=== PATIENT | male | born 1970 | race Hispanic/Latino ===

== ENCOUNTER 2025-03-24 21:50 | Emergency (ER) | payer BC, OTHER ==
[~2025-03-24] VITALS: Ht 172.7 cm; Wt 88.5 kg
[2025-03-24 22:31] LABS: BASOPHILS # (AUTO) 0.04 K/uL (0.00-0.20); BASOPHILS % (AUTO) 0.3 % (0.0-5.0); EOSINOPHILS # (AUTO) 0.19 K/uL (0.00-0.70); EOSINOPHILS % (AUTO) 1.6 % (0.0-8.0); HEMATOCRIT 38.9 % (42-54); IMMATURE GRANULOCYTE ABSOLUTE 0.04 K/uL (0-1); LYMPHOCYTES # (AUTO) 1.7 K/uL (1.0-4.8); LYMPHOCYTES % (AUTO) 14.3 % (21.0-51.0); MEAN CORPUSCULAR HEMOGLOBIN 28.9 pg (27.0-33.0); MEAN CORPUSCULAR HGB CONC 34.2 g/dL (32.0-36.0); MEAN CORPUSCULAR VOLUME 84.6 fL (79-99); MONOCYTES # (AUTO) 0.9 K/uL (0.1-1.0); NEUTROPHILS # (AUTO) 8.8 K/uL (1.8-7.7); NEUTROPHILS % (AUTO) 75.5 % (40.0-77.0); PLATELET COUNT (AUTO) 225 K/uL (130-400); RED CELL DISTRIBUTION WIDTH 12.3 % (11.0-15.5); WHITE BLOOD COUNT (AUTO) 11.6 K/uL (4.8-10.8)
[2025-03-24 22:38] LABS: POTASSIUM 3.6 mmol/L (3.5-5.1)
[2025-03-24 22:40] LABS: APPEARANCE,URINE CLEAR (CLEAR); BILIRUBIN,URINE NEGATIVE (NEGATIVE); COLOR,URINE LIGHT-YELLOW (YELLOW); GLUCOSE, URINE (UA) NEGATIVE (NEGATIVE); KETONES,URINE NEGATIVE (NEGATIVE); LEUKOCYTE ESTERASE ,URINE NEGATIVE Leu/uL (NEGATIVE); MUCUS,URINE RARE LPF (None Seen); NITRATE,URINE NEGATIVE (NEGATIVE); OCCULT BLOOD,URINE SMALL (NEGATIVE); PROTEIN,URINE NEGATIVE (NEGATIVE); SQUAMOUS EPITHELIAL CELL,UR RARE /HPF (0-2); UROBILINOGEN,URINE 0.2 mg/dL (0.2-1.0)
--- NOTE | 2025-03-24 22:46 | HMCIMG ---
CT ABDOMEN/PELVIS W/O CONTRAST HISTORY: Right flank pain COMPARISON: None TECHNIQUE: Multiple sequential axial images of the abdomen and pelvis were obtained from the dome of the diaphragm through symphysis pubis. Patient was not given contrast through intravenous route. Oral contrast was not given. FINDINGS: No pleural effusion is seen bilaterally. There is no evidence of parenchymal disease or pulmonary nodule of the visualized lower lungs. Degenerative changes of the thoracolumbar spine are present. The heart is not enlarged. The liver, spleen, adrenal glands and pancreas are unremarkable. No hydronephrosis is on the left. There is mild right proptosis with 6.5 mm renal stone in the right proximal ureter. 2 mm left renal pelvic stone is also seen Fecal material is seen in the colon. There are normal size retroperitoneal and mesenteric lymph nodes. No ascites is seen. Atherosclerotic changes are present. Pelvic sidewalls are symmetric bilaterally. Bladder is poorly distended. IMPRESSION: 1. There is mild right proptosis with 6.5 mm renal stone in the right proximal ureter. 2 mm left renal pelvic stone is also seen CT was performed with one or more following dose reduction techniques: automated exposure control, adjustment of the mA and kv according to patient's size, or use of a iterative reconstruction technique.
[2025-03-24] MEDS: morPHINE 4 MG SYG IVP ONE (23:14)
[2025-03-24] MEDS ORDERED: TAMS-55 PO (23:49)
[2025-03-24] MEDS ORDERED: TRAM50TA4 PO (23:49)
--- NOTE | 2025-03-24 23:53 | ERN ---
General Chief Complaint: Low Back Pain/Injury Stated Complaint: C/O LOWER BACK PAIN W/NAUSEA Time Seen by MD: 21:59 Time Seen by Midlevel: 21:59 Source: patient History of Present Illness Initial Comments 55-year-old male who presents to the emergency department due to right flank pain that initiated prior to arrival. Patient reports the sharp pain and nausea lasted approximately 25 minutes then resolved. States the flank pain radiates to the frontal right lower abdomen/inguinal area. Denies any chest pain, dysuria, hematuria, fever or further associated symptoms. Patient states he has a history of kidney stones otherwise denies further significant past medical history. Allergies: Coded Allergies: aspirin (Unverified Allergy, Unknown, 03/24/25) Home Meds Active Scripts Tramadol Hcl (Tramadol HCl) 50 Mg Tablet, 50 MG PO BID PRN for PAIN LEVEL 6 TO 10 for 7 Days, #14 TAB Prov:YVAN LEGER MD 03/25/25 Tamsulosin HCl (Flomax) 0.4 Mg Cap.er.24h, 1 CAP PO DAILY for 5 Days, #5 CAP 0 Refills Prov:SANDRA GERBER 03/24/25 Past Medical History Past Medical History: No Pertinent History Past Surgical History: None ROS Dictation Constitutional: Negative for fever,chills, and weight loss Eyes: Negative for injury, pain,redness, and discharge ENT: Negative for injury,pain or swelling Cardiovascular: Negative for chest pain, palpitations, and edema Respiratory: Negative for shortness of breath, cough, and wheezing, Abdomen/GI: Positive for nausea Negative for abdominal pain, vomiting, diarrhea, and constipation Back: Positive for right flank pain Negative for injury and pain : Negative for painful urination, bleeding or discharge MS/Extremity: Negative for injury and deformity Skin: Negative for rash, and discoloration Neuro: Negative for headache, weakness, numbness, tingling, and seizure Psych: Negative for suicide ideation, homicidal ideation, and hallucinations Physical Exam Physical Exam Dictation General: awake, alert, no acute distress Head/Face: Normocephalic, atraumatic Eyes: PERRL, EOMI, normal conjuctiva ENT: oral cavity clear, oral mucosa moist Neck: Supple, normal range of motion Cardiovascular: RRR, normal S1/S2 Respiratory: CTAB, no respiratory distress Abdomen: Soft, non-tender, non-distended, no guarding or rebound. Back: Minimal right CVA tenderness Skin: Warm, dry, normal turgor, no rash MS/Extremity: Pulses equal, no cyanosis, neurovascular intact, FROM Neuro: COAx4, GCS 15, strength 5/5, CN 2-12 intact, normal cerebellar exam, normal gait Psych: Normal behavior, mood, and affect normal Results Laboratory and Microbiology Lab and Micro Result Laboratory Tests Test 03/24/25 22:15 03/24/25 22:18 Urine Color LIGHT-YELLOW (YELLOW) Urine Appearance CLEAR (CLEAR) Urine pH 6.0 (5.0-8.0) Urine Specific Wilmer 1.022 (1.001-1.031) Urine Protein NEGATIVE mg/dL (NEGATIVE) Urine Glucose (UA) NEGATIVE mg/dL (NEGATIVE) Urine Ketones NEGATIVE mg/dL (NEGATIVE) Urine Occult Blood SMALL (NEGATIVE) H Urine Nitrate NEGATIVE (NEGATIVE) Urine Bilirubin NEGATIVE mg/dL (NEGATIVE) Urine Urobilinogen 0.2 mg/dL (0.2-1.0) Urine Leukocyte Esterase NEGATIVE Tonia/uL Urine RBC 11-25 /HPF (0-1) H Urine WBC 2-5 /HPF (0-1) H Urine Squamous Epithelial Cells RARE /HPF (0-2) Urine Bacteria None /HPF (None Seen) White Blood Count 11.6 K/uL (4.8-10.8) H Red Blood Count 4.60 MIL/uL (4.50-6.20) Hemoglobin 13.3 g/dL (14.0-18.0) L Hematocrit 38.9 % (42-54) L Mean Corpuscular Volume 84.6 fL (79-99) Mean Corpuscular Hemoglobin 28.9 pg (27.0-33.0) Mean Corpuscular Hemoglobin Concent 34.2 g/dL (32.0-36.0) Red Cell Distribution Width 12.3 % (11.0-15.5) Platelet Count 225 K/uL (130-400) Mean Platelet Volume 11.2 fL (7.5-10.5) H Immature Granulocyte % (Auto) 0.3 % (0-1) Neutrophils (%) (Auto) 75.5 % (40.0-77.0) Lymphocytes (%) (Auto) 14.3 % (21.0-51.0) L Monocytes (%) (Auto) 8.0 % (3.0-13.0) Eosinophils (%) (Auto) 1.6 % (0.0-8.0) Basophils (%) (Auto) 0.3 % (0.0-5.0) Neutrophils # (Auto) 8.8 K/uL (1.8-7.7) H Lymphocytes # (Auto) 1.7 K/uL (1.0-4.8) Monocytes # (Auto) 0.9 K/uL (0.1-1.0) Eosinophils # (Auto) 0.19 K/uL (0.00-0.70) Basophils # (Auto) 0.04 K/uL (0.00-0.20) Absolute Immature Granulocyte (auto 0.04 K/uL (0-1) Nucleated Red Blood Cells 0.0 % (0.0-0.19) Sodium Level 142 mmol/L (136-145) Potassium Level 3.6 mmol/L (3.5-5.1) Chloride Level 104 mmol/L (101-111) Carbon Dioxide Level 29 mmol/L (21-32) Blood Urea Nitrogen 17 mg/dL (7-18) Creatinine 1.0 mg/dL (0.5-1.3) Glomerular Filtration Rate Calc 88 mL/min (>90) Random Glucose 109 mg/dL (70-105) H Total Calcium 8.9 mg/dL (8.5-10.1) Labs Reviewed?: Yes EKG/XRAY/US/CT/MRI CT Scan Comment REASON: R flank pain ORDERING PHYSICIAN: SANDRA GERBER PROCEDURE: ABD PEL WO - CT ABDOMEN/PELVIS W/O CONTRAST CT ABDOMEN/PELVIS W/O CONTRAST HISTORY: Right flank pain COMPARISON: None TECHNIQUE: Multiple sequential axial images of the abdomen and pelvis were obtained from the dome of the diaphragm through symphysis pubis. Patient was not given contrast through intravenous route. Oral contrast was not given. FINDINGS: No pleural effusion is seen bilaterally. There is no evidence of parenchymal disease or pulmonary nodule of the visualized lower lungs. Degenerative changes of the thoracolumbar spine are present. The heart is not enlarged. The liver, spleen, adrenal glands and pancreas are unremarkable. No hydronephrosis is on the left. There is mild right proptosis with 6.5 mm renal stone in the right proximal ureter. 2 mm left renal pelvic stone is also seen Fecal material is seen in the colon. There are normal size retroperitoneal and mesenteric lymph nodes. No ascites is seen. Atherosclerotic changes are present. Pelvic sidewalls are symmetric bilaterally. Bladder is poorly distended. IMPRESSION: 1. There is mild right proptosis with 6.5 mm renal stone in the right proximal ureter. 2 mm left renal pelvic stone is also seen CT was performed with one or more following dose reduction techniques: automated exposure control, adjustment of the mA and kv according to patient's size, or use of a iterative reconstruction technique. DICTATED BY: CLINT JACKSON MD DATE: 03/24/252242 [facility] MDM: Differential diagnosis: Nephrolithiasis, UTI, hydronephrosis Rationale: 55-year-old male who presents to the emergency department due to right flank pain that initiated prior to arrival. Patient reports the sharp pain and nausea lasted approximately 25 minutes then resolved. States the flank pain radiates to the frontal right lower abdomen/inguinal area. Denies any chest pain, dysuria, hematuria, fever or further associated symptoms. Patient states he has a history of kidney stones otherwise denies further significant past medical history. Labs indicate mild WBC of 11.6, BMP nonspecific, UA shows RBCs and occult blood otherwise no urinary tract infection. CT abdomen and pelvis shows mild right proptosis with a 6.5 mm renal stone in the right proximal ureter and a 2 mm left renal pelvic stone. Patient verbalized being allergic to aspirin and anti- inflammatories therefore ketorolac unable to be administered. Patient received morphine and tamsulosin. Patient was educated on findings, and diagnosis. Admission versus outpatient follow up was discussed with the patient. Patient verbalized he would not like to stay and would prefer to follow up outpatient. Tamsulosin and pain medication were prescribed for outpatient treatment. Advised to follow up with PCP. Return to the emergency department if any worsening symptoms. Patient verbalized understanding. Patient stable for discharge. There are no social concerns with this patient. I independently interpreted the test that were performed, results were reviewed by me and considered findings on radiology if ordered. Medical management and examination interpretation discussions were had by me with other qualified healthcare professionals as indicated for the patient's care. ED Course Orders Procedure Category Date Status Time Cbc With Differential LAB 03/24/25 Complete 22:08 Basic Metabolic Panel LAB 03/24/25 Complete 22:08 Urinalysis LAB 03/24/25 Complete W/Microscopic 22:08 Ct Abdomen/Pelvis W/O CT 03/24/25 Resulted Contrast 22:08 Morphine 4mg Syg PHA 03/24/25 Complete (Morphine 4mg Syg) 23:00 Tamsulosin Hcl PHA 03/25/25 Complete (Flomax) 00:00 Current Medications Medications (Trade) Dose Ordered Sig/Felicia Route PRN Reason Start Time Stop Time Status Last Admin Dose Admin Morphine Sulfate (morPHINE 4MG SYG) 4 mg ONCE ONCE IVP 03/24/25 23:00 03/24/25 23:01 DC 03/24/25 23:14 Tamsulosin HCl (FloMAX) 0.4 mg ONCE ONCE PO 03/25/25 00:00 03/25/25 00:01 DC 03/25/25 00:06 Vital Signs Date Time Temp Pulse Resp B/P (MAP) Pulse Ox O2 Delivery O2 Flow Rate FiO2 03/25/25 00:44 98.8 63 18 166/81 97 Room Air* 0 21 03/24/25 22:29 98.8 65 18 171/94 98 Room Air* 0 21 03/24/25 21:57 98.4 69 20 152/94 97 Room Air DX & DISP Disposition: Discharge Departure Impression: Primary Impression: Nephrolithiasis Condition: Stable Scripts Tramadol Hcl (Tramadol HCl) 50 Mg Tablet 50 MG PO BID PRN for PAIN LEVEL 6 TO 10 for 7 Days, #14 TAB Prov: YVAN LEGER MD 03/25/25 Tamsulosin HCl (Flomax) 0.4 Mg Cap.er.24h 1 CAP PO DAILY for 5 Days, #5 CAP 0 Refills Prov: SANDRA GERBER 03/24/25 Additional Instructions: Discharge home. Rest. Follow up with primary care DrChon in 24 hours. Return to the ER for any acute changes or worsening symptoms. If any medications were prescribed take as directed. Okay to continue home medications unless otherwise discussed during your visit in the emergency room today. Patient was also advised to follow-up with primary care physician in 1 to 2 days for continued monitoring. Referrals: SELF,REFERRAL (PCP) I performed the substantive portion of the visit. I have reviewed and personally made and approve the management plan that is documented in the notes by myself or the MARY. I acknowledge full responsibility for the patient's management plan. SANDRA GERBER Mar 24, 2025 23:53
[2025-03-25] MEDS ORDERED: TRAM100C3 PO (00:05)
[2025-03-25] MEDS: tamSULOsin HCL 0.4 MG CAP.ER.24H PO ONE (00:06)
[2025-03-25 00:44] VITALS: BP 166/81; PULSE 63; RESP 18; TEMP 98.7; O2SAT 97
[2025-03-25] MEDS ORDERED: TRAM50TA4 PO (01:02)
== END 2025-03-25 00:46 | disposition home or self-care (01) ==
LOC: EDH 21:50
DX: N20.0 Calculus of kidney (principal); Z88.6 Allergy status to analgesic agent
CPT/HCPCS: 99284; 74176; 96374; 80048; 85025; 81001; 36415; J2270